=== PATIENT | female | born 1990 | race Caucasian/White ===

== ENCOUNTER → 2022-09-26 07:46 | Outpatient (CLI) | payer OTHER, SELFPAY ==
--- NOTE | 2022-09-26 | DI.MRI.S_ITS ---
PROCEDURE: MR AB PANCREATIC/MRCP PROTOCOL INDICATIONS: abnormal levels of other serum enzymes/ RUQ pain TECHNIQUE: Coronal HASTE through the abdomen, axial 2-D FLASH in- and [id number], and breath-hold T2 FSE with fat saturation through the biliary system and pancreas. Oblique coronal and axial thin-slice HASTE, radial thick-slab HASTE centered on the extrahepatic bile ducts. Intravenous secretin: Not requested. COMPARISON: None. FINDINGS: Image quality: Excellent. Liver: No solid mass. No significant steatosis. Gallbladder and biliary tree: No gallstones or biliary dilation. Gallbladder sludge. Spleen: Normal size. Pancreas: No ductal dilation. Adrenal glands: No adrenal nodules. Kidneys: No hydronephrosis. No solid mass. No complex renal cysts which requires follow-up. Other solid organs: Liver is normal in size. Spleen is normal in size. No adrenal nodules. Both kidneys are normal in size, without hydronephrosis. Nodes and vessels: No retroperitoneal or mesenteric adenopathy by size criteria. Aorta and inferior vena cava are normal in size. Bowel and peritoneum: Unenhanced bowel loops are normal in caliber. No free fluid. Lung bases: No basal pleural effusions. Heart size is normal. Bones and soft tissues: No ventral hernias. Bone marrow is of normal overall signal. IMPRESSION: No acute abnormality. Normal MRI appearance of the liver and pancreas. Gallbladder sludge without stones. Dictated by: Jeremias Rees M.D. on 09/26/2022 at 11:29 Approved by: Jeremias Rees M.D. on 09/26/2022 at 14:13
== END ==
PROVIDERS: PCP Student in an Organized Health Care Education/Training Program; Referring Provider Internal Medicine Gastroenterology; Visit Provider Internal Medicine Gastroenterology
DX: R10.11 Right upper quadrant pain (principal); R74.8 Abnormal levels of other serum enzymes; K82.8 Other specified diseases of gallbladder
CPT/HCPCS: 74183

== ENCOUNTER → 2023-10-10 07:57 | Outpatient (CLI) | payer OTHER, SELFPAY ==
--- NOTE | 2023-10-10 07:58 | DI.US.S_ITS ---
PROCEDURE: US PELVIC COMPLETE INDICATIONS: IUD CHECK TECHNIQUE: Real-time scanning was performed of the pelvic organs, with image documentation. Additional endovaginal scanning was necessary due to incomplete visualization of the adnexal and endometrial structures by transabdominal scanning. COMPARISON: None. FINDINGS: Uterus: Uterus is retroverted and normal in size at any by 3.4 x 5.4 cm. The myometrium is homogeneous. The endometrium measures 13.2 mm combined thickness. IUD appears appropriately positioned. Nabothian cysts. Ovaries: The right ovary measures 2.7 x 1.7 x 2.5 cm, with a calculated ovarian volume of 6.1 cc. The left ovary measures 1.7 x 1.6 x 2.7 cm, with a calculated ovarian volume of 4 cc. The ovaries have a normal sonographic appearance. Greater than 12 follicles in each ovary. No adnexal masses are seen. Other: No pathologic free abdominal or pelvic fluid. IMPRESSION: 1. IUD appears appropriately position within the endometrium. 2. Endometrial thickness is 13.2 mm. 3. Greater than 12 follicles in the bilateral ovaries which is nonspecific and may be seen in the setting of PCOS. We strive to produce accurate, complete, and clear reports of imaging services. To assist us in improving patient care, this report was composed using standard report templates and voice recognition software. Therefore, it may contain abnormal punctuation, insertions and/or omissions. Occasional wrong-word or sound-alike substitutions may occur. Though we review the report and make efforts to correct it, we do recommend that the report be read carefully in proper context to recognize any text inaccuracies. Dictated by: Cordell Bolaños M.D. on 10/10/2023 at 11:08 Approved by: Cordell Bolaños M.D. on 10/10/2023 at 12:11
== END ==
LOC: US 07:58
PROVIDERS: PCP Student in an Organized Health Care Education/Training Program; Referring Provider Nurse Practitioner Family; Visit Provider Nurse Practitioner Family
DX: Z30.431 Encounter for routine checking of intrauterine contraceptive device (principal)
CPT/HCPCS: 76856